=== PATIENT | female | born 1985 | race Caucasian/White ===

== ENCOUNTER 2019-03-02 19:03 | Inpatient (IN) | payer OTHER ==
[~2019-03-02] VITALS: Ht 154.9 cm; Wt 83.9 kg
[2019-03-02] MEDS ORDERED: OXYTOCIN/0.9 % SODIUM CHLORIDE 1,000 ML IV SCH (20:22)
[2019-03-02] MEDS ORDERED: ACETAMINOPHEN 325 MG TABLET PO PRN (20:30)
[2019-03-02 20:43] VITALS: BP_SYST 133
[2019-03-02] MEDS ORDERED: TERBUTALINE SULFATE 1 MG/ML VIAL SUBCUT ONE (21:00)
[2019-03-02] MEDS: MISOPROSTOL 100 MCG TABLET (CYTOTEC) PO SCH (21:00)
[2019-03-02 21:16] LABS: BASOPHILS % (AUTO) 0.2 % (0.0-2.0); EOSINOPHILS % (AUTO) 0.3 % (0.0-4.0); HEMATOCRIT 30.1 % (36-48); HEMOGLOBIN 9.8 g/dL (12.0-16.0); LYMPHOCYTES # (AUTO) 2.6 K/uL (1.0-5.5); LYMPHOCYTES % (AUTO) 25.8 % (20.5-51.5); MEAN CORPUSCULAR HEMOGLOBIN 27 pg (27-31); MEAN CORPUSCULAR HGB CONC 33 % (32-36); MEAN CORPUSCULAR VOLUME 83 fL (79.0-98.0); MONOCYTES # (AUTO) 0.6 K/uL (0.0-1.0); MONOCYTES % (AUTO) 5.9 % (1.7-9.3); NEUTROPHILS # (AUTO) 6.8 K/uL (1.8-7.7); NEUTROPHILS % (AUTO) 67.8 % (40.0-70.0); PLATELET COUNT (AUTO) 376 K/uL (130-430); RED BLOOD CELL COUNT(AUTO) 3.61 MIL/uL (4.2-6.2); RED CELL DISTRIBUTION WIDTH 15.3 % (9.0-15.0)
[2019-03-02] MEDS: MORPHINE SULFATE 10 MG/ML VIAL IVP PRN (21:40)
[2019-03-02] MEDS: LR 1,000 ML IV SCH (22:15)
[2019-03-03] MEDS: MORPHINE SULFATE 10 MG/ML VIAL IVP PRN ×2 (00:14→03:37)
[2019-03-03] MEDS: LR 1,000 ML IV SCH ×2 (02:00→12:15)
[2019-03-03] MEDS: MISOPROSTOL 100 MCG TABLET (CYTOTEC) PO SCH (03:00)
[2019-03-03] MEDS ORDERED: ROPIVACAINE HCL/PF 0.2% 200 ML ONE (03:46)
[2019-03-03] MEDS ORDERED: fentaNYL CITRATE/PF 100 MCG/2 ML AMP ONE (03:46)
[2019-03-03] MEDS ORDERED: LR 500 ML IV ONE (04:35)
[2019-03-03] MEDS ORDERED: FENT2mCg/mL-ROPIVA0.2%/NS EPID 200 ML EP ONE (04:45)
[2019-03-03] MEDS ORDERED: ePHEDrine sulfate 50 MG/ML VIAL IVP PRN (04:45)
[2019-03-03] MEDS: FERROUS SULFATE 325 MG TABLET.DR PO SCH (09:00)
[2019-03-03] MEDS ORDERED: HEMABATE 250MCG/ML VIAL AMP IM ONE ×2 (14:41→16:45)
[2019-03-03] MEDS ORDERED: OXYTOCIN/0.9 % SODIUM CHLORIDE 1,000 ML IV SCH (14:58)
[2019-03-03] MEDS ORDERED: OXYTOCIN/0.9 % SODIUM CHLORIDE 1,000 ML IV ONE (14:58)
[2019-03-03] MEDS ORDERED: HYDROcodone/ACETAMIN 5-325 MG TAB (NORCO/ VICODIN) PO PRN (15:00)
[2019-03-03] MEDS ORDERED: RHO(D) IMMUNE GLOBULIN/MALTOSE 1500 UNITS/1.3 ML (WINHRO) IM PRN (15:00)
[2019-03-03] MEDS ORDERED: OXYCODONE/ACETAMINOPHEN 5-325 TABLET PO PRN (15:00)
[2019-03-03] MEDS ORDERED: DERMOPLAST SPRAY TP PRN (15:00)
[2019-03-03] MEDS ORDERED: WITCH HAZEL LEAF 1 MED.PAD MED.PAD TP PRN (15:00)
[2019-03-03] MEDS ORDERED: MEASLES,MUMPS&RUBELLA VACC/PF 12500 UNIT/0.5 ML VIAL SUBQ PRN (15:00)
[2019-03-03] MEDS ORDERED: LANOLIN 7 GM OINT. TP PRN (15:00)
[2019-03-03] MEDS ORDERED: DIPH-TET-PERTUS Vaccine 0.5 ML VIAL (ADACEL) I.M. PRN (15:00)
[2019-03-03] MEDS ORDERED: SENNOSIDES/DOCUSATE SODIUM 1 TAB TABLET(SENOKOT-S) PO PRN (15:00)
[2019-03-03] MEDS: IBUPROFEN 600 MG TABLET PO SCH (18:00)
[2019-03-03] MEDS: OXYCODONE/ACETAMINOPHEN 5-325 TABLET PO PRN ×2 (18:35→22:03)
[2019-03-03 20:33] LABS: HEMATOCRIT 23.4 % (36-48); HEMOGLOBIN 7.5 g/dL (12.0-16.0)
[2019-03-03] MEDS ORDERED: PHENYLEPH/MINERAL OIL/PETROLAT 45 GM OINT.APPL TP PRN (21:15)
[2019-03-03] MEDS: DOCUSATE SODIUM 100 MG CAPSULE PO PRN (22:03)
[2019-03-04] MEDS: IBUPROFEN 600 MG TABLET PO SCH ×4 (00:04→18:02)
[2019-03-04 07:36] LABS: BASOPHILS % (AUTO) 0.1 % (0.0-2.0); EOSINOPHILS % (AUTO) 0.1 % (0.0-4.0); LYMPHOCYTES # (AUTO) 2.5 K/uL (1.0-5.5); LYMPHOCYTES % (AUTO) 15.2 % (20.5-51.5); MEAN CORPUSCULAR HEMOGLOBIN 27 pg (27-31); MEAN CORPUSCULAR HGB CONC 32 % (32-36); MEAN CORPUSCULAR VOLUME 84 fL (79.0-98.0); MONOCYTES # (AUTO) 0.9 K/uL (0.0-1.0); MONOCYTES % (AUTO) 5.3 % (1.7-9.3); NEUTROPHILS # (AUTO) 12.9 K/uL (1.8-7.7); NEUTROPHILS % (AUTO) 79.3 % (40.0-70.0); PLATELET COUNT (AUTO) 304 K/uL (130-430); RED BLOOD CELL COUNT(AUTO) 2.42 MIL/uL (4.2-6.2); RED CELL DISTRIBUTION WIDTH 15.8 % (9.0-15.0)
[2019-03-04 08:03] LABS: HEMATOCRIT 20.3 % (36-48)
[2019-03-04 08:05] LABS: HEMOGLOBIN 6.5 g/dL (12.0-16.0); WHITE BLOOD COUNT (AUTO) 16.3 K/uL (4.8-10.8)
[2019-03-04] MEDS ORDERED: MINERAL OIL 30 ML UDC PO ONE (08:29)
[2019-03-04] MEDS: OXYCODONE/ACETAMINOPHEN 5-325 TABLET PO PRN ×2 (09:56→18:03)
[2019-03-04] MEDS: DOCUSATE SODIUM 100 MG CAPSULE PO PRN (21:08)
[2019-03-04] MEDS: FERROUS SULFATE 325 MG TABLET.DR PO SCH (21:08)
[2019-03-05] MEDS: OXYCODONE/ACETAMINOPHEN 5-325 TABLET PO PRN (00:58)
[2019-03-05] MEDS: IBUPROFEN 600 MG TABLET PO SCH ×3 (00:58→12:29)
[2019-03-05] MEDS: DOCUSATE SODIUM 100 MG CAPSULE PO PRN (09:10)
[2019-03-05] MEDS: FERROUS SULFATE 325 MG TABLET.DR PO SCH (09:10)
== END 2019-03-05 15:13 | disposition home or self-care (01) | DRG 806 ==
LOC: SPU 19:03
PROVIDERS: ADMIT Obstetrics & Gynecology; ATTEND Obstetrics & Gynecology
PROC: 10D07Z6 Extraction of Products of Conception, Vacuum, Via Natural or Artificial Opening (ICD-10-PCS; principal; 2019-03-03)
PROC: 0W8NXZZ Division of Female Perineum, External Approach (ICD-10-PCS; 2019-03-03)
PROC: 3E0R3BZ Introduction of Anesthetic Agent into Spinal Canal, Percutaneous Approach (ICD-10-PCS; 2019-03-03)
PROC: 00HU33Z Insertion of Infusion Device into Spinal Canal, Percutaneous Approach (ICD-10-PCS; 2019-03-03)
PROC: 3E033VJ Introduction of Other Hormone into Peripheral Vein, Percutaneous Approach (ICD-10-PCS; 2019-03-03)
DX: O13.4 Gestational [pregnancy-induced] hypertension without significant proteinuria, complicating childbirth (principal); R71.0 Precipitous drop in hematocrit; Z37.0 Single live birth; Z3A.39 39 weeks gestation of pregnancy; O90.81 Anemia of the puerperium
CPT/HCPCS: 36415; 81002-TC; 85018-TC; 85025; 86592; 86870; 86886; 86900; 86901; 94760; J2270; J2590; J3010; J7120